=== PATIENT | female | born 1955 ===

== ENCOUNTER 2016-07-18 18:45 | Emergency (ER) | payer MEDICARE, OTHER ==
[2016-07-18 19:09] VITALS: RESP 16
[2016-07-18 19:39] LABS: BLOOD UREA NITROGEN 15 mg/dl (7-17); CALCIUM 10.1 mg/dL (8.4-10.2); CARBON DIOXIDE 27 mmol/L (22-30); CHLORIDE 101 mmol/L (98-107); GFR AFRICAN-AMERICAN > 60; GLUCOSE,RANDOM 170 mg/dL (65-105); HEMATOCRIT 41.9 % (34.0-47.0); MEAN CELL VOLUME 85.9 fl (81.0-99.0); MEAN CORPUSCULAR HEMOGLOBIN 28.7 pg (27.0-31.0); MEAN CORPUSCULAR HGB CONC 33.4 g/dL (33.0-37.0); POTASSIUM 3.8 MMOL/L (3.6-5.0); RED CELL DISTRIBUTION WIDTH 13.9 % (11.5-14.5); SODIUM 144 mmol/l (132-148); WHITE BLOOD COUNT 10.5 K/uL (4.8-10.8)
[2016-07-18 20:18] VITALS: BP 118/72; PULSE 72; TEMP 98.7
[2016-07-18 20:21] VITALS: O2SAT 99
--- NOTE | 2016-07-18 20:21 | ED PDOC ---
Hyperglycemia/Hypoglycemia Time Seen by Provider: 07/18/16 18:53 Chief Complaint (Nursing): Weakness/Neurological Deficit Chief Complaint (Provider): Hypoglycemia History Per: Patient History/Exam Limitations: no limitations Onset/Duration Of Symptoms: Days (just prior to arrival) Current Symptoms Are (Timing): Better Severity: Moderate Current Diabetic Medications: Insulin Causative (Exacerbating) Factor(s): Ate Less Than Normal : The patient does not have any of the infectious symptoms listed except for those marked. Treatment Prior To Provider Evaluation: Oral Fluids/Paste Given (oral glucose) Response To Treatment: Good Response Additional Complaint(s): Aydee Galloway is a is a 60 year old female, with a past medical history inclusive of IDDM, who presents to the ED on 07/18/16 s/p hypoglycemic episode at home, characterized by feelings of both dizziness and shakiness. Patient reports having taken her regular dosages of Insulin and Janumet today despite not having eaten very well secondary to a decreased appetite. Home accucheck was reportedly in the 50's, at which time she had called EMS. PO Glucose administered by EMS with patient stating that she feels improved upon arrival in the ED. No URI symptoms. PMD: [facility] Past Medical History Reviewed: Historical Data, Nursing Documentation, Vital Signs Vital Signs: Last Vital Signs Temp 98.1 F 07/18/16 18:48 Pulse 97 H 07/18/16 18:48 Resp 16 07/18/16 18:48 BP 146/97 H 07/18/16 18:48 Pulse Ox 99 07/18/16 18:48 - Medical History PMH: Diabetes (IDDM), HTN - Surgical History Surgical History: No Surg Hx - Family History Family History: States: Unknown Family Hx - Allergies Allergies/Adverse Reactions: Allergies Allergy/AdvReac Type Severity Reaction Status Date / Time No Known Allergies Allergy Verified 07/18/16 18:48 Review of Systems ROS Statement: Except As Marked, All Systems Reviewed And Found Negative Constitutional: Positive for: Weakness (shakiness). Negative for: Fever ENT: Negative for: Nose Congestion, Throat Pain Respiratory: Negative for: Cough Neurological: Positive for: Dizziness. Negative for: Headache Physical Exam - Reviewed Nursing Documentation Reviewed: Yes Vital Signs Reviewed: Yes - Physical Exam Appears: Positive for: Non-toxic, No Acute Distress Head Exam: Positive for: ATRAUMATIC, NORMOCEPHALIC Skin: Positive for: Normal Color, Warm, Dry Eye Exam: Positive for: Normal appearance, PERRL ENT: Positive for: Normal ENT Inspection Cardiovascular/Chest: Positive for: Regular Rate, Rhythm. Negative for: Murmur Respiratory: Positive for: Normal Breath Sounds. Negative for: Respiratory Distress Neurologic/Psych: Positive for: Alert, field application engineer II-XII (intact), Oriented. Negative for: Motor/Sensory Deficits - Laboratory Results Result Diagrams: 07/18/16 19:00 07/18/16 19:00 - ECG O2 Sat by Pulse Oximetry: 99 (RA) Pulse Ox Interpretation: Normal Medical Decision Making Medical Decision Makin:53 Initial Impression: hypoglycemic episode in the setting of known IDDM Initial Plan: * Labs * Reevaluation Labs reviewed with no clinically significant abnormalities. Blood glucose is 170. Patient is not on a sulfonylurian, no concern for recurrent hypoglycemic episode. 20:00 Upon provider reevaluation patient is feeling better, is medically stable, and requires no further treatment in the ED at this time. Patient will be discharged home. Counseling was provided and all questions were answered regarding diagnosis and need for follow up with her PMD to discuss her current medication regimen. There is agreement to discharge plan. Return if symptoms persist or worsen. Clinical Impression: hypoglycemic episode Scribe Attestation: Documented by Joan Mckee, acting as a scribe for Reinaldo Silva MD. Provider Scribe Attestation: All medical record entries made by the Scribe were at my direction and personally dictated by me. I have reviewed the chart and agree that the record accurately reflects my personal performance of the history, physical exam, medical decision making, and the department course for this patient. I have also personally directed, reviewed, and agree with the discharge instructions and disposition. Disposition - Clinical Impression Clinical Impression: Hypoglycemia - Patient ED Disposition Is Patient to be Admitted: No Counseled Patient/Family Regarding: Studies Performed, Diagnosis, Need For Followup - Disposition Referrals: Mu Raza MD [Family Provider] - Disposition: Routine/Home Disposition Time: 20:00 Condition: STABLE Instructions: Diabetic Hypoglycemia (DC) Print Language: BENINESE
== END 2016-07-18 20:19 | disposition home or self-care (01) ==
LOC: H.ER 18:45
DX: E16.2 Hypoglycemia, unspecified (principal); Z79.4 Long term (current) use of insulin; I10 Essential (primary) hypertension

== ENCOUNTER 2016-10-01 17:06 | Emergency (ER) | payer MEDICARE, OTHER ==
[2016-10-01 17:14] VITALS: BP 142/93; PULSE 73; RESP 18; TEMP 98.5; O2SAT 100
--- NOTE | 2016-10-01 17:24 | ED PDOC ---
Lower Extremity Pain/Injury Time Seen by Provider: 10/01/16 17:22 Chief Complaint (Nursing): Lower Extremity Problem/Injury Chief Complaint (Provider): knee pain/leg pain History Per: Patient Additional History Per: Patient (60 y/o female h/o DM/Depression here after trip and fell on front stairs of building. States she landed directly on right knee 3 days ago. Able to ambulate but notes increasing pain. Has additoinal erythema noted along anterior right leg.) Past Medical History Reviewed: Historical Data, Nursing Documentation, Vital Signs Vital Signs: Last Vital Signs Temp 98.5 F 10/01/16 17:11 Pulse 73 10/01/16 17:11 Resp 18 10/01/16 17:11 BP 142/93 H 10/01/16 17:11 Pulse Ox 100 10/01/16 17:11 - Medical History PMH: Diabetes (IDDM), HTN - Family History Family History: States: Unknown Family Hx - Home Medications Home Medications: Ambulatory Orders Medication Instructions Recorded Naproxen [Naprosyn Tab] 375 mg PO Q8 PRN #21 tab 10/01/16 - Allergies Allergies/Adverse Reactions: Allergies Allergy/AdvReac Type Severity Reaction Status Date / Time No Known Allergies Allergy Verified 10/01/16 17:11 Review of Systems ROS Statement: Except As Marked, All Systems Reviewed And Found Negative Physical Exam - Reviewed Nursing Documentation Reviewed: Yes Vital Signs Reviewed: Yes - Physical Exam Appears: Positive for: Well, Non-toxic, No Acute Distress Head Exam: Positive for: ATRAUMATIC, NORMAL INSPECTION, NORMOCEPHALIC Skin: Positive for: Normal Color, Warm, DRY Eye Exam: Positive for: EOMI, Normal appearance, PERRL ENT: Positive for: Normal ENT Inspection Neck: Positive for: Normal, Painless ROM Cardiovascular/Chest: Positive for: Regular Rate, Rhythm Respiratory: Positive for: CNT, Normal Breath Sounds Gastrointestinal/Abdominal: Positive for: Normal Exam, Bowel Sounds, Soft Back: Positive for: Normal Inspection Extremity: Positive for: Normal ROM, Swelling (swelling noted medial aspect of right knee. (+) abrasion healing noted proximal aspect of leg by knee. (+) petechaie noted along right leg. Good pulses 2 plus noted DP/PT bilateral feet. ) Neurologic/Psych: Positive for: Alert, Oriented - ECG O2 Sat by Pulse Oximetry: 100 - Progress ED Course And Treament: KNEE XRY: NEG FOR FX DUPLEX US: NEG FOR DVT Disposition - Clinical Impression Clinical Impression: Knee contusion - Patient ED Disposition Is Patient to be Admitted: No - Disposition Disposition: Routine/Home Disposition Time: 18:44 Condition: FAIR Prescriptions: Naproxen [Naprosyn Tab] 375 mg PO Q8 PRN #21 tab PRN Reason: Pain, Moderate (4-7) Instructions: Knee Pain (ED)
--- NOTE | 2016-10-01 18:49 | US ---
PROCEDURE: Right lower extremity venous duplex Doppler. HISTORY: r/o dvt COMPARISON: None available. TECHNIQUE: Common femoral, superficial femoral, popliteal and posterior tibial veins were evaluated. Flow was assessed with color Doppler, compressibility, assessment of phasic flow and augmentation response. FINDINGS: COMMON FEMORAL VEIN: Unremarkable. SUPERFICIAL FEMORAL VEIN: Unremarkable. POPLITEAL VEIN: Unremarkable. POSTERIOR TIBIAL VEIN: Unremarkable. OTHER FINDINGS: None. IMPRESSION: No evidence of deep venous thrombosis in the right lower extremity.
--- NOTE | 2016-10-01 18:54 | RAD ---
PROCEDURE: Right Knee Radiographs. HISTORY: knee injury COMPARISON: None. FINDINGS: BONES: Normal. No fracture. JOINTS: Normal. No osteoarthritis. JOINT EFFUSION: None. OTHER FINDINGS: None. IMPRESSION: No acute findings related to/accounting for the clinical presentation.
== END 2016-10-01 19:30 | disposition home or self-care (01) ==
LOC: H.ER 17:06
DX: S80.01XA Contusion of right knee, initial encounter (principal); W19.XXXA Unspecified fall, initial encounter; Y92.89 Other specified places as the place of occurrence of the external cause

== ENCOUNTER 2017-03-19 13:11 | Emergency (ER) | payer MEDICARE, OTHER ==
[2017-03-19 13:35] VITALS: BP 150/93; PULSE 72; RESP 18; TEMP 97; O2SAT 100
--- NOTE | 2017-03-19 13:56 | ED PDOC ---
Lower Extremity Pain/Injury Time Seen by Provider: 03/19/17 13:17 Chief Complaint (Nursing): Lower Extremity Problem/Injury Chief Complaint (Provider): Lower extremity problem History Per: Patient History/Exam Limitations: no limitations Onset/Duration Of Symptoms: Days (x3), Worse Since (x3 days) Current Symptoms Are (Timing): Still Present Severity: Moderate Pain Scale Rating Of: 10 Additional Complaint(s): Aydee Galloway is a 61 year old female, with a past medical history of diabetes and hypertension, who presents to the emergency department complaining of a worsening constant left leg pain onset for 3 days. Patient states the pain radiates down the leg. She visited her doctor and had an ultrasound done but came back negative. Patient hasn't slept due to pain and denies taking any pain medications. She reports falling 6 months ago but it was her right leg that hurt during that time. She denies any lower back pain, fever or chills. No further medical complaints. PMD: None provided. Past Medical History Reviewed: Historical Data, Nursing Documentation, Vital Signs Vital Signs: Last Vital Signs Temp 97 F L 03/19/17 13:32 Pulse 72 03/19/17 13:32 Resp 18 03/19/17 13:32 BP 150/93 H 03/19/17 13:32 Pulse Ox 100 03/19/17 13:32 - Medical History PMH: Anxiety, Bipolar Disorder, Diabetes (IDDM), HTN, Hyperlipidemia - Family History Family History: States: Unknown Family Hx - Social History Current smoker - smoking cessation education provided: No Alcohol: None Drugs: Denies - Home Medications Home Medications: Ambulatory Orders Medication Instructions Recorded Naproxen [Naprosyn Tab] 375 mg PO Q8 PRN #21 tab 10/01/16 traMADol [Ultram] 50 mg PO Q4 #10 tab 03/19/17 - Allergies Allergies/Adverse Reactions: Allergies Allergy/AdvReac Type Severity Reaction Status Date / Time No Known Allergies Allergy Verified 10/01/16 17:11 Review of Systems ROS Statement: Except As Marked, All Systems Reviewed And Found Negative Constitutional: Negative for: Fever, Chills Musculoskeletal: Positive for: Leg Pain (constant pain radiating down the left leg). Negative for: Back Pain (lower) Physical Exam - Reviewed Nursing Documentation Reviewed: Yes Vital Signs Reviewed: Yes - Physical Exam Appears: Positive for: Well, Non-toxic, No Acute Distress Head Exam: Positive for: ATRAUMATIC, NORMAL INSPECTION, NORMOCEPHALIC Skin: Positive for: Normal Color, Warm, Dry Eye Exam: Positive for: EOMI, Normal appearance, PERRL Neck: Positive for: Normal, Painless ROM, Supple Respiratory: Negative for: Respiratory Distress Back: Positive for: Other (tenderness near sciatic notch. ) Extremity: Positive for: Normal ROM, Other (Positive straight leg raise test) Neurologic/Psych: Positive for: Alert, Oriented - ECG O2 Sat by Pulse Oximetry: 100 (RA) Pulse Ox Interpretation: Normal Medical Decision Making Medical Decision Making: Initial Impression: sciatica Initial Plan: --Ultram 100 mg PO --Hip 1 view w/ pelvis Lt [RAD] --reevaluation HIP: Mild DJD, NAD, as read by IGNACIO Signs and symptoms of sciatica disucssed at length Advised to take mediations as directed. Follow up with Pain management as scheduled for Wed. Return to ED with any concerns ~ Scribe Attestation: Documented by Kilo Lopez, acting as a scribe for Peri Lomax PA-C. Provider Scribe Attestation: All medical record entries made by the Scribe were at my direction and personally dictated by me. I have reviewed the chart and agree that the record accurately reflects my personal performance of the history, physical exam, medical decision making, and the department course for this patient. I have also personally directed, reviewed, and agree with the discharge instructions and disposition. Disposition - Clinical Impression Clinical Impression: Sciatica - Patient ED Disposition Is Patient to be Admitted: No - Disposition Disposition: Routine/Home Disposition Time: 15:47 Condition: STABLE Prescriptions: traMADol [Ultram] 50 mg PO Q4 #10 tab Instructions: Sciatica (ED) Forms: [facility] ([facility])
--- NOTE | 2017-03-19 16:20 | RAD ---
PROCEDURE: Left Hip X-ray Radiographs. HISTORY: pain, atraumatic COMPARISON: None. FINDINGS: BONES: Normal. No fracture. JOINTS: Normal. SOFT TISSUES: Normal. OTHER FINDINGS: None. IMPRESSION: Normal left hip radiographs.
== END 2017-03-19 15:50 | disposition home or self-care (01) ==
LOC: H.ER 13:11
DX: M54.31 Sciatica, right side (principal); E11.9 Type 2 diabetes mellitus without complications; E78.5 Hyperlipidemia, unspecified; F31.9 Bipolar disorder, unspecified; F41.9 Anxiety disorder, unspecified; I10 Essential (primary) hypertension; Z79.4 Long term (current) use of insulin